=== PATIENT | male | born 1995 | race Caucasian/White ===

== ENCOUNTER 2017-09-26 15:22 | Emergency (ER) | payer OTHER ==
[~2017-09-26] VITALS: Ht 185.4 cm; Wt 68.2 kg
--- NOTE | 2017-09-26 16:30 | NUR ---
DR HELM EVALUATED THE PT. PT WAS D/C TO HOME. D/C INSTRUCTIONS GIVEN TO THE PT AND TO HIS PARENTS.
[2017-09-26 16:33] VITALS: BP 129/76
== END 2017-09-26 16:34 | disposition home or self-care (01) ==
LOC: ER 15:23
DX: K29.70 Gastritis, unspecified, without bleeding (principal); F12.10 Cannabis abuse, uncomplicated
CPT/HCPCS: 99283; A4663